=== PATIENT | male | born 1965 ===

== ENCOUNTER → 2024-05-13 | Outpatient (CLI) | payer OTHER ==
[2024-05-14 12:32] LABS: Stool Occult Bld Immuno 1 Negative (NEGATIVE)
== END | disposition home or self-care (01) ==
LOC: LAB SHORT 23:00 → LAB 23:00
PROVIDERS: Physician Assistant
DX: Z12.11 Encounter for screening for malignant neoplasm of colon (principal)
CPT/HCPCS: G0328